=== PATIENT | female | born 1995 | race Hispanic/Latino ===

== ENCOUNTER 2017-06-21 22:03 | Emergency (ER) | payer OTHER, MEDICAID ==
[2017-06-21 22:58] LABS: APPEARANCE,URINE Clear (CLEAR); BILIRUBIN,URINE Negative (NEGATIVE); COLOR,URINE Yellow (YELLOW); GLUCOSE, URINE (UA) Negative (NEGATIVE); KETONES,URINE Negative (NEGATIVE); LEUKOCYTE ESTERASE ,URINE Negative (NEGATIVE); NITRATE,URINE Negative (NEGATIVE); OCCULT BLOOD,URINE Negative (NEGATIVE); PH,URINE 6.5 (5.0-8.0); PROTEIN,URINE Negative (NEGATIVE)
[2017-06-21 22:59] LABS: HCG,QUAL RESULT NEGATIVE (NEGATIVE)
[2017-06-21] MEDS ORDERED: CYCLOBENZAPRINE HCL 10 MG TABLET ONE (23:14)
== END 2017-06-21 23:22 | disposition home or self-care (01) ==
LOC: EDH 22:03
DX: M62.830 Muscle spasm of back (principal); R10.31 Right lower quadrant pain; R10.32 Left lower quadrant pain; E78.5 Hyperlipidemia, unspecified; M06.9 Rheumatoid arthritis, unspecified; J45.909 Unspecified asthma, uncomplicated; Z91.041 Radiographic dye allergy status; Z88.0 Allergy status to penicillin; V49.49XA Driver injured in collision with other motor vehicles in traffic accident, initial encounter; Y93.89 Activity, other specified; Y92.89 Other specified places as the place of occurrence of the external cause; Y99.8 Other external cause status
CPT/HCPCS: 81003; 81025

== ENCOUNTER 2018-02-23 12:54 | Emergency (ER) | payer MEDICAID, OTHER | END 2018-02-23 14:19 | disposition home or self-care (01) | LOC: EDH 12:54 | DX: G89.29 Other chronic pain (principal); R10.13 Epigastric pain; J45.909 Unspecified asthma, uncomplicated; E78.5 Hyperlipidemia, unspecified; M06.9 Rheumatoid arthritis, unspecified; Z88.0 Allergy status to penicillin; Z91.041 Radiographic dye allergy status; Z90.49 Acquired absence of other specified parts of digestive tract | CPT/HCPCS: 99281 ==

== ENCOUNTER 2019-03-10 19:31 | Emergency (ER) | payer OTHER ==
[2019-03-10] MEDS ORDERED: ACETAMINOPHEN EXTRA STRENGTH 500 MG TABLET ONE (19:40)
[2019-03-10 20:30] LABS: RAPID GROUP A STREP NEGATIVE (NEGATIVE)
== END 2019-03-10 21:09 | disposition home or self-care (01) ==
LOC: EDH 19:31
DX: J11.1 Influenza due to unidentified influenza virus with other respiratory manifestations (principal); J45.909 Unspecified asthma, uncomplicated; E78.5 Hyperlipidemia, unspecified; Z90.49 Acquired absence of other specified parts of digestive tract; Z88.0 Allergy status to penicillin; Z91.041 Radiographic dye allergy status
CPT/HCPCS: 87804; 87880